=== PATIENT | female | born 1980 | race Two or more races ===

== ENCOUNTER 2017-08-31 23:24 | Emergency (ER) | payer OTHER ==
[~2017-08-31] VITALS: Ht 167.6 cm; Wt 73.8 kg
[~2017-08-31 23:24] MED LIST: KEFLEX500 MG PO; LANTUS 3 M100 UNITS1 SC; METFORMIN HCL1000 MG PO; NORCO 5/3251 TABLET PO; NOVOLOG PE100 UNITS/ SC; TRAZODONE HCL100 MG PO; UNKNOWN ANTIBIOTIC PO
[2017-08-31 23:57] LABS: BASOPHIL (%) 0.3 % (0-1); EOSINOPHIL (%) 0.2 % (0-5); HEMATOCRIT 44.8 % (36.0-46.0); HEMOGLOBIN 15.4 G/DL (11.9-15.5); IMMATURE GRANULOCYTE (%) 0.4 % (0.0-0.7); LYMPHOCYTE (%) 11.7 % (15-42); LYMPHOCYTE COUNT 1.3 K/uL (1.0-2.8); MCH 28.8 PG (29.0-34.0); MCHC 34.4 G/DL (30.0-36.0); MCV 83.9 FL (83-99); MONOCYTE (%) 3.4 % (3-12); MONOCYTE COUNT 0.4 K/uL (0-0.8); NEUTROPHIL COUNT 9.6 K/uL (1.8-6.4); PLATELET COUNT 330 K/uL (156-360); RBC DIS.WIDTH-CV 11.3 % (11.8-14.6); RBC DIS.WIDTH-SD 34.2 % (39-53); RED BLOOD COUNT 5.34 M/uL (3.80-5.20); WHITE BLOOD COUNT 11.4 K/uL (4.1-10.2)
[2017-09-01] LABS: CARBON DIOXIDE (BICARBONATE) 27.3 MEQ/L (20-31)
[2017-09-01 00:08] LABS: ALBUMIN 4.7 g/dL (3.2-4.8); CHLORIDE 107 mEq/L (99-109); POTASSIUM 4.5 mEq/L (3.7-5.4); SODIUM 141 mEq/L (136-147)
[2017-09-01 00:10] LABS: GLUCOSE 219 mg/dL (70-99); TOTAL PROTEIN 8.1 g/dL (6.4-8.3)
[2017-09-01 00:12] LABS: TOTAL BILIRUBIN 0.4 mg/dL (0.0-1.0)
[2017-09-01 00:14] LABS: ALKALINE PHOSPHATASE 95 IU/L (3-129); CREATININE 0.7 mg/dL (0.6-1.3); GFR ESTIMATE (CALCULATED) > 59 mL/min/
[2017-09-01 00:15] LABS: AST (GOT) 25 IU/L (2-34); DIRECT BILIRUBIN 0.2 mg/dL (0.0-0.3); UREA NITROGEN (BUN) 11 mg/dL (9-23)
[2017-09-01 00:17] LABS: ALT (GPT) 25 IU/L (3-49); LIPASE 12 U/L (1.0-51.0)
[2017-09-01] MEDS ORDERED: ZOFRAN4 MG PO (01:35)
[2017-09-01 01:45] VITALS: BP 127/68
== END 2017-09-01 01:45 | disposition home or self-care (01) ==
LOC: EME 23:24
PROVIDERS: Emergency Medicine
DX: E86.0 Dehydration (principal); R11.2 Nausea with vomiting, unspecified; E10.65 Type 1 diabetes mellitus with hyperglycemia; Z79.4 Long term (current) use of insulin; J45.909 Unspecified asthma, uncomplicated; E78.5 Hyperlipidemia, unspecified
CPT/HCPCS: 80048; 80076; 81003; 82803; 82948; 83690; 85025; 87086; 99281; 99284; J7030